=== PATIENT | male | born 1945 | race Caucasian/White ===

== ENCOUNTER 2017-12-09 09:26 | Emergency (ER) | payer MEDICARE, BC ==
[~2017-12-09] VITALS: Ht 177.8 cm; Wt 77.3 kg
[2017-12-09 11:31] VITALS: BP 118/70
== END 2017-12-09 11:39 | disposition home or self-care (01) ==
LOC: ER 09:28
DX: S22.41XA Multiple fractures of ribs, right side, initial encounter for closed fracture (principal); Z98.890 Other specified postprocedural states; Z88.8 Allergy status to other drugs, medicaments and biological substances; W01.198A Fall on same level from slipping, tripping and stumbling with subsequent striking against other object, initial encounter; Y93.64 Activity, baseball; Y92.320 Baseball field as the place of occurrence of the external cause; Y99.8 Other external cause status
CPT/HCPCS: 71100-TC; A4606; Z7610